=== PATIENT | female | born 2000 | race African-American/Black ===

== ENCOUNTER 2020-08-11 12:46 | Emergency (ER) | payer MEDICAID, OTHER ==
[~2020-08-11] VITALS: Ht 162.6 cm; Wt 95.3 kg
[2020-08-11 12:58] VITALS: BP 126/66
[2020-08-11] MEDS ORDERED: KETOROLAC TROMETH 60MG/2ML VIAL IM ONE (14:15)
== END 2020-08-11 14:48 | disposition home or self-care (01) ==
LOC: ER 12:46
DX: S46.912A Strain of unspecified muscle, fascia and tendon at shoulder and upper arm level, left arm, initial encounter (principal); Z88.0 Allergy status to penicillin; X50.9XXA Other and unspecified overexertion or strenuous movements or postures, initial encounter; Y93.89 Activity, other specified; Y92.89 Other specified places as the place of occurrence of the external cause; Y99.8 Other external cause status
CPT/HCPCS: 73030; 96372; 99283; J1885